=== PATIENT | female | born 1995 ===

== ENCOUNTER 2016-08-31 11:43 | Emergency (ER) | payer OTHER ==
--- NOTE | 2016-09-01 10:50 | CARD ---
APPROVED REPORT EKG Measurement Heart [id number] <Conclusion> Sinus bradycardia Otherwise normal ECG
== END 2016-09-01 08:35 | disposition home or self-care (01) ==
LOC: ED 11:43
DX: F41.9 Anxiety disorder, unspecified (principal); J06.9 Acute upper respiratory infection, unspecified; I10 Essential (primary) hypertension
CPT/HCPCS: 93005; 99281; G0480

== ENCOUNTER 2018-01-13 19:31 | Emergency (ER) | payer OTHER ==
[2018-01-13 19:41] VITALS: PULSE 64; TEMP 98.7
[2018-01-13] MEDS ORDERED: Sodium Chloride 0.9% 1,000 ML IV STA ×2 (19:47→21:32)
--- NOTE | 2018-01-13 19:54 | ED PDOC ---
Arrival/HPI - General Chief Complaint: GI Problem Time Seen by Provider: 01/13/18 19:40 Historian: Patient - History of Present Illness Narrative History of Present Illness (Text): 01/13/18 19:48 22yo female with no pmhx who present with complaint of nausea, nonbloody/billious vomiting, diarrhea and generalized bodyache since last night. The mother by the bedside states she started vomiting last night after drinking alcohol. States she usually drinks the same amount of alcohol. The mother also states that patient might be . States her LMP was over a month ago. She otherwise denies fever, chills, chest pain, urinary symptoms, sick contact, hematemesis, hematuria, hematochezia, any other complaint. Past Medical History - Provider Review Nursing Documentation Reviewed: Yes - Psychiatric Hx Substance Use: Yes (CANNABIS) Family/Social History - Physician Review Nursing Documentation Reviewed: Yes Family/Social History: Unknown Family HX Smoking Status: Smoker Currrent Status Unknown Hx Alcohol Use: Yes Hx Substance Use: Yes (CANNABIS) Allergies/Home Meds Allergies/Adverse Reactions: Allergies No Known Allergies Allergy (Verified 01/13/18 19:34) Review of Systems - Physician Review All systems were reviewed & negative as marked: Yes - Review of Systems Constitutional: Normal Eyes: Normal ENT: Normal Respiratory: Normal Cardiovascular: Normal Gastrointestinal: Abdominal Pain, Diarrhea, Nausea, Vomiting. absent: Constipation, Hematochezia, Hematemesis Genitourinary Female: Normal Musculoskeletal: Normal Skin: Normal Neurological: Normal Endocrine: Normal Hemo/Lymphatic: Normal Psychiatric: Normal Physical Exam Vital Signs Reviewed: Yes Vital Signs Temp Pulse Resp BP Pulse Ox 01/13/18 19:38 98.7 F 64 30 H 148/88 100 Temperature: Afebrile Blood Pressure: Normal Pulse: Regular Respiratory Rate: Tachypneic Appearance: Positive for: Well-Appearing, Non-Toxic, Comfortable Pain Distress: None Mental Status: Positive for: Alert and Oriented X 3 - Systems Exam Head: Present: Atraumatic, Normocephalic Pupils: Present: PERRL Extroacular Muscles: Present: EOMI Conjunctiva: Present: Normal Mouth: Present: Moist Mucous Membranes Neck: Present: Normal Range of Motion Respiratory/Chest: Present: Clear to Auscultation, Good Air Exchange. No: Respiratory Distress, Accessory Muscle Use Cardiovascular: Present: Regular Rate and Rhythm, Normal S1, S2. No: Murmurs Abdomen: Present: Tenderness (Mild epigastric tenderness), Normal Bowel Sounds, Other (soft). No: Distention, Peritoneal Signs, Rebound, Guarding, McBurney's Point Tender, Rovsing's Sign Present Back: Present: Normal Inspection Upper Extremity: Present: Normal Inspection. No: Cyanosis, Edema Lower Extremity: Present: Normal Inspection. No: Edema Neurological: Present: GCS=15, CN II-XII Intact, Speech Normal Skin: Present: Warm, Dry, Normal Color. No: Rashes Psychiatric: Present: Alert, Oriented x 3, Normal Insight, Normal Concentration Medical Decision Making ED Course and Treatment: 01/13/18 22:48 Patient presented for stated history. She was in mild distress on arrival. She had epigastric tenderness on exam. Labs 1L NS, zofran, pepcid was ordered On re evaluation pt was smiling, states she feels much better on her cell phone. Lab was reviewed and leukocytosis was noted. Ketones was noted in the UA. Upreg was negative. PT was hydrated with a second bag of NS. She is likley dehydrated secondary to enteritis. Result was DW the pt. she will be DC home with a rx of pepcid and zofran. Referred to her PMD. Advised to return to ED for new or worsening symptoms. Disposition/Present on Arrival - Present on Arrival Any Indicators Present on Arrival: No History of DVT/PE: No History of Uncontrolled Diabetes: No Urinary Catheter: No History of Decub. Ulcer: No History Surgical Site Infection Following: None - Disposition Have Diagnosis and Disposition been Completed?: Yes Diagnosis: Abdominal pain, Vomiting and diarrhea Disposition: HOME/ ROUTINE Disposition Time: 22:55 Patient Plan: Discharge Condition: IMPROVED Discharge Instructions (ExitCare): Acute Abdomen (Belly Pain), Nausea and Vomiting, Adult (DC) Additional Instructions: Follow up with your Doctor Follow BRAT diet (banana, plain rice, apple sauce, cracker, tea) Return to ED for any new or worsening symptoms Prescriptions: Famotidine [Pepcid] 40 mg PO DAILY #10 tab Ondansetron ODT [Zofran ODT] 4 mg PO Q6 #7 odt Referrals: [facility] Kacie Cazares, [Primary Care Provider] - Follow up with primary Melida Ernandez MD [Medical Doctor] - Follow up with primary Forms: [employer] (Georgian)
[2018-01-13 20:09] LABS: BASO # 0.01 K/mm3 (0.0-2.0); BASO % 0.1 % (0.0-3.0); GRAN # 13.92 (1.4-6.5); GRAN % 93.3 % (50.0-68.0); HEMOGLOBIN 13.3 g/dL (12.0-16.0); LYMPH # 0.8 (1.2-3.4); LYMPH % 5.2 % (22.0-35.0); MEAN CELL VOLUME 86.2 fl (80.0-105.0); MEAN CORPUSCULAR HEMOGLOBIN 30.2 pg (25.0-35.0); MEAN PLATELET VOLUME 10.8 fl (7.0-11.0); MONO # 0.2 (0.1-0.6); MONO % 1.4 % (1.0-6.0); PLATELET COUNT 314 10^3/uL (120.0-450.0); RBC 4.41 10^6/uL (3.5-6.1); WHITE BLOOD COUNT 14.9 10^3/ul (4.5-11.0)
[2018-01-13 20:17] LABS: ALB/GLOB RATIO 1.5 (1.1-1.8); ALT/SGPT 15 U/L (7-56); AST/SGOT 28 U/L (14-36); BLOOD UREA NITROGEN 8 mg/dL (7-21); GFR NON-AFRICAN AMERICAN > 60; INR 1.07; LIPASE 75 U/L (23-300); PARTIAL THROMBOPLASTIN TIME 25.3 Seconds (25.1-36.5); PROTHROMBIN TIME 12.2 SECONDS (9.4-12.5)
[2018-01-13 20:55] LABS: ATYPICAL LYMPHOCYTE 1 % (0.0-0.0); LYMPHOCYTE 6 % (22.0-35.0); NEUTROPHIL 93 % (50.0-70.0)
[2018-01-13 21:10] LABS: PH,URINE 8.5 (4.7-8.0); URINE BILIRUBIN NEGATIVE (NEGATIVE); URINE BLOOD NEGATIVE (NEGATIVE); URINE GLUCOSE (UA) NEGATIVE (NEGATIVE); URINE LEUKOCYTE ESTERASE NEGATIVE Leu/uL (NEGATIVE); URINE PROTEIN 100 mg/dL (<30 mg/dL); URINE UROBILINOGEN 0.2 E.U./dL (<1 E.U./dL)
[2018-01-13 21:16] LABS: URINE APPEARANCE CLEAR (CLEAR); URINE COLOR YELLOW (YELLOW)
[2018-01-13 21:27] LABS: URINE BACTERIA MOD (NEG); URINE RBC NEGATIVE /hpf (0-2)
[2018-01-14 01:01] VITALS: BP 127/84; RESP 18; O2SAT 99
== END 2018-01-13 23:15 | disposition home or self-care (01) ==
LOC: ED 19:31
DX: R11.10 Vomiting, unspecified (principal); R19.7 Diarrhea, unspecified; R10.9 Unspecified abdominal pain
CPT/HCPCS: 80053; 81001; 82948; 83690; 83735; 85025; 85610; 85730; 96361; 96374; 96375; 99284; J2405; J7030

== ENCOUNTER 2018-07-21 09:40 | Emergency (ER) | payer OTHER ==
[2018-07-21] MEDS ORDERED: Sodium Chloride 0.9% 1,000 ML IV STA (10:22)
--- NOTE | 2018-07-21 10:51 | ED PDOC ---
Arrival/HPI - General Chief Complaint: GI Problem Time Seen by Provider: 07/21/18 09:46 Historian: Patient - History of Present Illness Narrative History of Present Illness (Text): 07/21/18 10:49 23-year-old female with no significant past medical history, presents complaining of epigastric discomfort associated with nausea, and multiple episodes of vomiting and diarrhea this morning. Patient admits that she was drinking alcohol heavily yesterday. States that this has happened to her in the past when she drinks too much alcohol. Otherwise she reports no fever, chills, chest pain, shortness of breath, back pain, urinary symptoms, abdominal surgeries. Patient has no other complaints. Past Medical History - Psychiatric Hx Substance Use: Yes (CANNABIS) Family/Social History Family/Social History: No Known Family HX Smoking Status: Smoker Currrent Status Unknown Hx Alcohol Use: Yes Hx Substance Use: Yes (CANNABIS) Allergies/Home Meds Allergies/Adverse Reactions: Allergies No Known Allergies Allergy (Verified 07/21/18 09:59) Review of Systems - Review of Systems Constitutional: absent: Fatigue, Fevers Respiratory: absent: SOB, Cough Cardiovascular: absent: Chest Pain, Palpitations Gastrointestinal: Abdominal Pain, Diarrhea, Nausea, Vomiting Genitourinary Female: absent: Dysuria, Frequency Musculoskeletal: absent: Arthralgias, Back Pain, Neck Pain Skin: absent: Rash, Skin Lesions Neurological: absent: Headache, Dizziness Physical Exam Vital Signs Temp Pulse Resp BP Pulse Ox 07/21/18 09:59 98.2 F 76 17 136/77 100 Temperature: Afebrile Blood Pressure: Normal Pulse: Regular Respiratory Rate: Normal Appearance: Positive for: Well-Appearing, Non-Toxic, Comfortable Pain Distress: None Mental Status: Positive for: Alert and Oriented X 3 - Systems Exam Head: Present: Atraumatic, Normocephalic Pupils: Present: PERRL Extroacular Muscles: Present: EOMI Conjunctiva: Present: Normal Mouth: Present: Dry Neck: Present: Normal Range of Motion Respiratory/Chest: Present: Clear to Auscultation, Good Air Exchange. No: Respiratory Distress, Accessory Muscle Use Cardiovascular: Present: Regular Rate and Rhythm, Normal S1, S2. No: Murmurs Abdomen: No: Tenderness, Distention, Peritoneal Signs, Rebound, Guarding Back: Present: Normal Inspection Upper Extremity: Present: Normal Inspection. No: Cyanosis, Edema Lower Extremity: Present: Normal Inspection. No: Edema Neurological: Present: GCS=15, CN II-XII Intact, Speech Normal Skin: Present: Warm, Dry, Normal Color. No: Rashes Psychiatric: Present: Alert, Oriented x 3, Normal Insight, Normal Concentration Medical Decision Making ED Course and Treatment: 07/21/18 10:48 Plan : - IV - Labs - Pepcid/ Zofran - Reassess / disposition 07/21/18 11:52 On reevaluation, patient reports improvement of symptoms, she still reports of mild nausea but denies any nominal pain or diarrhea in the ER. On exam, patient remains awake alert and oriented 3 in no acute distress, she is talking on her cell phone, speaking in full sentences, no slurred speech, no tremors. Diagnostic results discussed with the patient, given another dose of Zofran IV, diagnosis of gastritis due to alcohol discussed with the patient. Advised to follow up with primary care physician or referral provided in 1-2 days without fail. Advised to take medication as prescribed. Return to the emergency room at any time for any new or worsening symptoms. Patient states she fully agrees with and understands discharge instructions. States that she agrees with the plan and disposition. Verbalized and repeated discharge instructions and plan. I have given the patient opportunity to ask any additional questions. - Medication Orders Current Medication Orders: Sodium Chloride (Sodium Chloride 0.9%) 1,000 mls @ 1,000 mls/hr IV .Q1H STA Stop: 07/21/18 11:21 Last Admin: 07/21/18 10:35 Dose: 1,000 mls/hr eMAR Start Stop Document 07/21/18 10:35 GMI (Rec: 07/21/18 10:36 [facility] [place] Intravenous Solution Start Date 07/21/18 Start Time 10:36 End Date 07/21/18 End time 11:35 Total Infusion Time 59 Discontinued Medications Famotidine (Pepcid) 20 mg IVP STAT STA Stop: 07/21/18 10:23 Last Admin: 07/21/18 10:38 Dose: 20 mg IVP Administration Document 07/21/18 10:38 GMI (Rec: 07/21/18 10:38 [facility] [facility] [place] Charges for Administration # of IVP Administrations 1 Ondansetron HCl (Zofran Inj) 4 mg IVP STAT STA Stop: 07/21/18 10:23 Last Admin: 07/21/18 10:38 Dose: 4 mg IVP Administration Document 07/21/18 10:38 GMI (Rec: 07/21/18 10:38 [facility] [place] Charges for Administration # of IVP Administrations 1 - PA / TRANSPORTATION OFFICER / Resident Statement MD/DO has reviewed & agrees with the documentation as recorded. Disposition/Present on Arrival - Present on Arrival Any Indicators Present on Arrival: No History of DVT/PE: No History of Uncontrolled Diabetes: No Urinary Catheter: No History of Decub. Ulcer: No History Surgical Site Infection Following: None - Disposition Have Diagnosis and Disposition been Completed?: Yes Diagnosis: Alcoholic gastritis, Vomiting and diarrhea Disposition: HOME/ ROUTINE Disposition Time: 12:00 Patient Plan: Discharge Condition: STABLE Discharge Instructions (ExitCare): Gastritis, Nausea and Vomiting, Adult (DC) Additional Instructions: Thank you for letting us take care of you today. You were treated for alcohol gastritis, vomiting and diarrhea. The emergency medical care you received today was directed at your acute symptoms. If you were prescribed any medication, please fill it and take as directed. It may take several days for your symptoms to resolve. Return to the Emergency Department if your symptoms worsen, do not improve, or if you have any other problems. Please contact your doctor in 2 days for re-evaluation and follow up / or call one of the physicians/clinics you have been referred to that are listed on the Patient Visit Information form that is included in your discharge packet. Bring any paperwork you were given at discharge with you along with any medications you are taking to your follow up visit. Our treatment cannot replace ongoing medical care by a primary care provider (PCP) outside of the emergency department. Thank you for allowing the [facility] team to be part of your care today. Prescriptions: Famotidine [Pepcid] 40 mg PO DAILY #20 tablet Ondansetron ODT [Zofran ODT] 4 mg PO DAILY PRN #20 odt PRN Reason: Nausea/Vomiting [place] [facility] [place] - Follow up with primary Forms: [employer] (Pashto), WORK NOTE, SCHOOL NOTE
[2018-07-21 11:02] LABS: ALB/GLOB RATIO 1.4 (1.1-1.8); ALBUMIN 4.8 g/dL (3.0-4.8); ALT/SGPT 13 U/L (7-56); AST/SGOT 24 U/L (14-36); BLOOD UREA NITROGEN 8 mg/dL (7-21); CALCIUM 9.9 mg/dL (8.4-10.5); GFR NON-AFRICAN AMERICAN > 60; LIPASE 67 U/L (23-300)
[2018-07-21 11:14] LABS: BASO # 0.02 K/mm3 (0.0-2.0); BASO % 0.2 % (0.0-3.0); EOS % 0.4 % (1.5-5.0); HEMOGLOBIN 13.4 g/dL (12.0-16.0); LYMPH # 1.6 (1.2-3.4); LYMPH % 19.6 % (22.0-35.0); MEAN CELL VOLUME 87.1 fl (80.0-105.0); MEAN CORPUSCULAR HEMOGLOBIN 28.9 pg (25.0-35.0); MEAN CORPUSCULAR HGB CONC 33.2 g/dl (31.0-37.0); MEAN PLATELET VOLUME 11.3 fl (7.0-11.0); MONO # 0.3 (0.1-0.6); MONO % 3.3 % (1.0-6.0); RBC 4.64 10^6/uL (3.5-6.1); RED CELL DISTRIBUTION WIDTH 13.5 % (11.5-14.5); WHITE BLOOD COUNT 8.1 10^3/uL (4.5-11.0)
[2018-07-21 12:18] VITALS: BP 125/87; PULSE 85; RESP 18; TEMP 98; O2SAT 99
== END 2018-07-21 12:18 | disposition home or self-care (01) ==
LOC: ED 09:40
DX: K29.20 Alcoholic gastritis without bleeding (principal); R11.10 Vomiting, unspecified; R19.7 Diarrhea, unspecified
CPT/HCPCS: 80053; 83690; 83735; 85025; 96361; 96374; 96375; 96376; 99284; J2405; J7030